=== PATIENT | female | born 1955 | race American Indian/Alaskan Native ===

== ENCOUNTER 2018-05-08 12:00 | Emergency (ER) | payer MEDICARE ==
--- NOTE | 2018-05-08 12:34 | Emergency Department Report ---
ED Medical Clearance HPI - General Chief complaint: Medical Clearance Stated complaint: LOW BP FOR 2XDAYS Time Seen by Provider: 05/08/18 12:19 Source: patient Mode of arrival: Ambulatory - History of Present Illness Initial comments: This is a 62-year-old [place] female Presents for evaluation of blood pressure. Patient states she got several low blood pressure readings yesterday while at home. Past medical history of hypertension and COPD. Patient is on 2 L of home oxygen. Blood pressure readings were low 100s over 70s and 90s over 60s. Patient is using a wrist blood pressure she is not sure if machine is accurate. She denies visual changes, chest pain, palpitations, shortness of breath, or diaphoresis. Onset/Timin -: days(s) Reason for Medical Clearance: other (blood pressure evaluation) Place: home Alledged Intoxication: No Compliant with Home Medications: Yes Traumatic Symptoms: denies traumatic injury Associated Symptoms: denies other symptoms. denies: chest pain, shortness of breath, palpitations, diaphoresis, confusion, cough, fever/chills, headaches, anorexia, malaise, nausea/vomiting, rash, seizure, syncope, weakness Treatments Prior to Arrival: none Allergies/Adverse reactions: Allergies Allergy/AdvReac Type Severity Reaction Status Date / Time No Known Allergies Allergy Unverified 01/07/13 10:26 ED Review of Systems ROS: Stated complaint: LOW BP FOR 2XDAYS Other details as noted in HPI Constitutional: denies: chills, fever Respiratory: denies: cough, shortness of breath, wheezing Cardiovascular: denies: chest pain, palpitations Gastrointestinal: denies: abdominal pain, nausea, diarrhea Neurological: denies: headache, weakness, paresthesias Psychiatric: denies: anxiety, depression ED Past Medical Hx - Past Medical History Previous Medical History?: Yes Hx Hypertension: Yes Hx COPD: Yes - Social History Smoking Status: Current Every Day Smoker Substance Use Type: None ED Physical Exam - General Limitations: No Limitations General appearance: alert, in no apparent distress - Respiratory Respiratory exam: Present: normal lung sounds bilaterally. Absent: respiratory distress - Cardiovascular Cardiovascular Exam: Present: regular rate, normal rhythm. Absent: systolic murmur, diastolic murmur, rubs, gallop - GI/Abdominal GI/Abdominal exam: Present: soft, normal bowel sounds. Absent: distended, tenderness, guarding, rebound, rigid, organomegaly, mass - Neurological Exam Neurological exam: Present: alert, oriented X3, normal gait - Psychiatric Psychiatric exam: Present: normal affect, normal mood - Skin Skin exam: Present: warm, dry, intact, normal color. Absent: rash ED Course Vital Signs 05/08/18 12:09 Temperature 98.5 F Pulse Rate 103 H Respiratory 20 Rate Blood Pressure 134/82 O2 Sat by Pulse 98 Oximetry ED Medical Decision Making - Medical Decision Making Patient was examined by me. Vitals are normal and patient is in no acute distress. Will check Patient given a blood pressure wall. Instructed to follow-up with primary care provider Dr. Avalos. Patient discharged home in stable condition. Follow up with PCP in 2-3 days. ED Disposition Clinical Impression: Feared complaint without diagnosis Disposition: -01 TO HOME OR SELFCARE Is pt being admited?: No Does the pt Need Aspirin: No Condition: Stable Instructions: Hypotension (ED) Additional Instructions: Keep a blood pressure daily log. Get a new blood pressure monitor. Follow-up with your primary care Dr. Ch next week. Return to the emergency room if palpitations, chest pain, shortness of breath, or visual changes. Referrals: PRISCILLA MASON MD [Primary Care Provider] - 3-5 Days DALJIT AVALOS JR, MD [Staff Physician] - 3-5 Days Time of Disposition: 12:34
[2018-05-10 12:03] VITALS: BP 129/83
== END 2018-05-08 12:50 | disposition home or self-care (01) ==
LOC: ED 12:00
DX: Z71.1 Person with feared health complaint in whom no diagnosis is made (principal); I10 Essential (primary) hypertension; J44.9 Chronic obstructive pulmonary disease, unspecified; F17.200 Nicotine dependence, unspecified, uncomplicated
CPT/HCPCS: 99282

== ENCOUNTER 2018-08-03 07:29 | Outpatient (CLI) | payer MEDICARE ==
[2018-08-03] MEDS ORDERED: DOBUTamine 100 MG in D5W 92 ML IV ONE (08:38)
[2018-08-03] MEDS ORDERED: DOBUTAMINE Stress 100 MG in D5W 75 ML IV SCH (09:00)
--- NOTE | 2018-08-03 23:41 | Treadmill Report ---
SINGLE ISOTOPE DUAL STUDY MYOCARDIAL PERFUSION SCAN REPORT DESCRIPTION OF PROCEDURE: The patient received 10 mCi of technetium 99m Myoview intravenously under resting conditions. Resting myocardial perfusion scan was done. Subsequently, the patient underwent dobutamine stress test as per the protocol. The patient was started on dobutamine 5 mcg/kg/min and it was increased to 10, 20, 30 and 40 mcg/kg/min every 3 minutes. The patient received 28 mCi of technetium-99m Myoview at the end of 13 minutes. The patient had some chest pressure at the peak of exercise, which gradually subsided. The patient also had some shortness of breath and she felt better after the dobutamine was stopped. The peak heart rate was 137 per minute (86% of predicted maximum heart rate) There was no evidence of ischemia on the EKG: No perfusion abnormality of the left ventricular myocardium was seen in the resting as well as stress myocardial perfusion scan images. Mild transient ischemic dilatation of the left ventricle was seen in the stress images with TID ratio of 1.17. Hyperdynamic left ventricle was seen with left ventricular ejection fraction of 70%. CONCLUSIONS: 1. Mild transient ischemic dilatation of the left ventricle in the stress images with TID ratio of 1.17 - this is of uncertain significance, particularly with the absence of myocardial perfusion defects. 2. Normal resting and stress myocardial perfusion scan images after the patient underwent dobutamine stress test. 3. No wall motion abnormality. 4. Hyperdynamic left ventricle with the LVEF of 70%. JOB# [id number] [facility]
== END 2018-08-03 07:30 | disposition home or self-care (01) ==
LOC: CARD 07:29
DX: R07.89 Other chest pain (principal); I10 Essential (primary) hypertension; E78.00 Pure hypercholesterolemia, unspecified; J43.9 Emphysema, unspecified; G47.33 Obstructive sleep apnea (adult) (pediatric); F17.210 Nicotine dependence, cigarettes, uncomplicated
CPT/HCPCS: 78452; 93017; A9502; J1250; 96374

== ENCOUNTER 2020-08-18 10:30 | Outpatient (CLI) | payer MEDICARE ==
[2020-08-18 11:04] LABS: Hemoglobin 14.5 gm/dl (10.1-14.3); Mean Corpuscular HGB Conc 34 % (30-34); Mean Corpuscular Volume 93 fl (79-97); Platelet Count 289 K/mm3 (140-440); Red Blood Count 4.61 M/mm3 (3.65-5.03); Red Cell Distribution Width 13.8 % (13.2-15.2)
[2020-08-18 11:18] LABS: Alanine Aminotransferase 22 units/L (7-56); BUN/Creatinine Ratio 16; Blood Urea Nitrogen 14 mg/dL (7-17); Calcium 10.6 mg/dL (8.4-10.2); Hemolysis Index 5
--- NOTE | 2020-08-18 13:05 | Cat Scan Report ---
CTA CHEST WITH IV CONTRAST INDICATION: MAIN. Shortness of breath TECHNIQUE: Axial CT images were obtained through the chest after injection of IV contrast. 3 plane MIP reconstru ctions were produced. All CT scans at this location are performed using CT dose reduction for ALARA b y means of automated exposure control. COMPARISON: None available. FINDINGS: PULMONARY ARTERIES: No pulmonary emboli. THORACIC AORTA: No acute abnormality. HEART: Normal. CORONARY ARTERIES: No significant calcification. PLEURA: No pleural effusion. No pneumothorax. LYMPH NODES: No significant adenopathy. Tiny calcified left perihilar granulomas LUNGS: No acute air space or interstitial disease. ADDITIONAL FINDINGS: None. UPPER ABDOMEN: No acute findings. Gallbladder surgically absent. SKELETAL STRUCTURES: No significant osseous abnormality. IMPRESSION: 1. No CT evidence for pulmonary embolism. 2. No acute findings. Signer Name: Jeffrey Scott MD Signed: 08/18/2020 1:00 PM Workstation Name: [id number]
== END 2020-08-18 10:31 | disposition home or self-care (01) ==
LOC: CT 10:30
PROVIDERS: ATTEND Internal Medicine
DX: J44.9 Chronic obstructive pulmonary disease, unspecified (principal); I26.99 Other pulmonary embolism without acute cor pulmonale; R06.02 Shortness of breath
CPT/HCPCS: 36415; 71275; 80053; 85027; Q9967

== ENCOUNTER 2020-08-28 11:22 | Outpatient (CLI) | payer MEDICARE ==
[2020-08-28 12:16] LABS: ABG Base Excess 3.8 mmol/L (-2.0-3.0); ABG HCO3 28.9 mmol/L (20.0-26.0); ABG Methemoglobin 0.5 % (0.0-1.5); ABG Oxygen Saturation 95.3 % (95.0-99.0); ABG PCO2 45.5 mm Hg; ABG PH 7.421 pH Units (7.350-7.450); ABG PO2 68.8 mm Hg (80.0-90.0)
[2020-08-28 12:44] LABS: Chol/HDL Ratio 2.86 %
== END 2020-08-28 11:23 | disposition home or self-care (01) ==
LOC: LAB 11:22
PROVIDERS: ATTEND Internal Medicine
DX: J44.9 Chronic obstructive pulmonary disease, unspecified (principal); J45.909 Unspecified asthma, uncomplicated; G47.33 Obstructive sleep apnea (adult) (pediatric); R06.02 Shortness of breath; J30.9 Allergic rhinitis, unspecified; F12.10 Cannabis abuse, uncomplicated; I10 Essential (primary) hypertension
CPT/HCPCS: 36415; 80061; 82803; 84436; 84443

== ENCOUNTER 2021-03-06 12:25 | Outpatient (CLI) | payer MEDICARE ==
--- NOTE | 2021-03-06 13:22 | XRay Report ---
LUMBAR SPINE HISTORY: COMPARISON: None. TECHNIQUE: 3 view(s) of the lumbar spine obtained. FINDINGS: Vertebrae: No evidence of vertebral body fracture. There is slight (4 mm) anterolisthesis of L5 on S5 , likely due to facet arthropathy at this level. Disc Spaces:Moderate degenerative change at L5/S1 disc space. Prevertebral Soft Tissues:No significant abnormality. Additional findings: None. IMPRESSION: Moderate degenerative change at L5/S1 disc space with slight (4 mm) anterolisthesis at this level, li mariana due to facet arthropathy. Signer Name: Charli Sandoval MD Signed: 03/06/2021 1:18 PM Workstation Name: [id number]
== END 2021-03-06 12:26 | disposition home or self-care (01) ==
LOC: XRAY 12:25
PROVIDERS: ATTEND Orthopaedic Surgery
DX: M47.817 Spondylosis without myelopathy or radiculopathy, lumbosacral region (principal)
CPT/HCPCS: 72100

== ENCOUNTER 2021-05-16 09:53 | Outpatient (CLI) | payer MEDICARE ==
--- NOTE | 2021-05-16 12:39 | Magnetic Resonance Report ---
MRI lumbar spine without contrast INDICATION: Lower back pain with right leg pain TECHNIQUE: Axial sagittal images FINDINGS: Alignment appears normal. Diffuse heterogeneous bone marrow signal seen throughout. Conus a ppears normal. L1-L2: No spinal canal narrowing or neuroforaminal narrowing. L2-L3: Facet change without spinal canal narrowing or neuroforaminal narrowing. L3-L4: No spinal canal narrowing or neuroforaminal narrowing. L4-L5: Disc desiccation brevis posterior disc bulge. No significant neuroforaminal narrowing. L5-S1: Minimal anterolisthesis. Disc desiccation posterior disc herniation. Moderate to severe right and moderate left lateral recess narrowing or neuroforaminal narrowing. Mild to moderate canal narrow ing. IMPRESSION: Multilevel discogenic degenerative change. Please see above for level by level description. Signer Name: Ye Clemons MD Signed: 05/16/2021 12:34 PM Workstation Name: [id number]
== END 2021-05-16 09:54 | disposition home or self-care (01) ==
LOC: MRI 09:53
PROVIDERS: ATTEND Orthopaedic Surgery
DX: M51.37 Other intervertebral disc degeneration, lumbosacral region (principal); M43.17 Spondylolisthesis, lumbosacral region; M48.07 Spinal stenosis, lumbosacral region; M46.21 Osteomyelitis of vertebra, occipito-atlanto-axial region
CPT/HCPCS: 72148

== ENCOUNTER 2021-11-01 09:30 | Outpatient (CLI) | payer MEDICARE ==
--- NOTE | 2021-11-01 10:35 | XRay Report ---
CHEST 2 VIEWS INDICATION / CLINICAL INFORMATION: COPD J44.9. COMPARISON: None available. FINDINGS: SUPPORT DEVICES: None. HEART / MEDIASTINUM: No significant abnormality. LUNGS / PLEURA: No significant pulmonary or pleural abnormality. No pneumothorax. ADDITIONAL FINDINGS: No significant additional findings. IMPRESSION: 1. No acute findings. Signer Name: Yang Perrin MD Signed: 11/01/2021 10:31 AM Workstation Name: [id number]
== END 2021-11-01 09:31 | disposition home or self-care (01) ==
LOC: XRAY 09:30
PROVIDERS: ATTEND Internal Medicine
DX: J44.9 Chronic obstructive pulmonary disease, unspecified (principal)
CPT/HCPCS: 71046